=== PATIENT | male | born 1940 | race Caucasian/White ===

== ENCOUNTER 2020-04-03 01:43 | Outpatient (CLI) | payer MEDICARE, OTHER, SELFPAY ==
[2020-04-03 19:20] LABS: SARS-CoV-2 RNA PCR Negative
== END 2020-04-03 01:44 | disposition home or self-care (01) ==
LOC: ANHCOVIDDT 01:44
PROVIDERS: Visit Provider Internal Medicine Gastroenterology
DX: Z01.812 Encounter for preprocedural laboratory examination (principal); Z11.59 Encounter for screening for other viral diseases
CPT/HCPCS: 87635; C9803; U0003

== ENCOUNTER 2020-04-05 02:58 | Day surgery (SDC) | payer MEDICARE, OTHER, SELFPAY ==
[2020-03-31 11:06] VITALS: BMI 29.3
--- NOTE | 2020-04-05 09:03 | WPDANESEPPF ---
Anes - Initial Pre Proc Eval Procedure: Operation Date: 04/05/20 10:30 Proposed Procedures p Colonoscopy - Jameel Kwong MD Date/Time: 04/05/20 09:03 Surgeon: Jameel Kwong MD Pre Op Diagnosis: change in bowel habits Patient Data Age: 79 Gender: M Height: 1.65 m Weight: 80 kg Allergies Allergy/AdvReac Type Severity Reaction Status Date / Time No Known Allergies Allergy Unverified 04/05/20 10:26 Home Medications Medication Instructions Recorded Confirmed Type brimonidine-timolol [Combigan] 1 drp OPHTHALMIC (EYE) BID 03/31/20 03/31/20 History netarsudil-latanoprost [Rocklatan] 1 drp OPHTHALMIC (EYE) HS 03/31/20 03/31/20 History pravastatin 20 mg PO DAILY 03/31/20 03/31/20 History propranolol 20 mg PO DAILY 03/31/20 03/31/20 History quinapril 40 mg PO DAILY 03/31/20 03/31/20 History Patient hx anesthesia problems: none Family hx anesthesia problems: none PMFSH Past Medical History Medical History (Updated 04/05/20 @ 09:08 by Lawson Umanzor MD) HTN (hypertension) Hypercholesterolemia Overweight (BMI 25.0-29.9) Peripheral neuropathy 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, 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 Family History Family History (Updated 05/12/14 @ 07:13 by DOCTOR UNKNOWN) Mother Family history of malignant neoplasm Other Family history of gallbladder disease Anes - Eval Final PreProcedure Day of Procedure 04/05/20 09:03 Patient weight: overweight Heart: regular rate and rhythm Lungs: clear to auscultation and normal air movement Airway: Mallampati scale class II Neurological: alert and oriented Last oral intake: >/= 8 hours ASA classification: II Emergent: no Anesthetic plan: proceed Anesthesia type and monitoring: general GIVS Informed Consent: The patient's anesthetic plan and its attendant risks and benefits were discussed with the patient/family/POA. Questions were solicited and answers provided to the satisfaction of the patient/family/POA.
[2020-04-05 10:28] VITALS: BP 150/81; PULSE 61; RESP 20; TEMP 36.4; O2SAT 99; BMI 28.1
[2020-04-05] MEDS: LACTATED RINGERS 1,000 ML 150 ML IV CONT (10:41)
--- NOTE | 2020-04-05 11:54 | P.CONGI_ITS ---
Assessment and Plan Assessment and plan (1) Constipation: Code(s): K59.00 - Constipation, unspecified Status: Acute Assessment and Plan: Patient has chronic constipation appears to be worsening. Because of poor response to trials of medication and ongoing symptoms a colonoscopy will be performed plan is to continue MiraLax daily. Supplement this with Linzess daily, he may need milk a magnesia on occasion. Fleets enema has been suggested intermittently as well. Further recommendations may be given after endoscopy. (2) Encounter for diagnostic colonoscopy due to change in bowel habits: Code(s): R19.4 - Change in bowel habit Status: Acute (3) Epigastric abdominal pain: Code(s): R10.13 - Epigastric pain Status: Acute Assessment and Plan: Patient complains of epigastric pain and bloating. Because of these persistent symptoms an EGD will be performed is likely this is related to his chronic constipation. GI Consult Note Consult date/time: 04/05/20 11:54 HPI: Saeid Webb is a 79 year old male Seen in evaluation at the [facility] [place] est of Dr Samuel Salas. patient has a long history of constipation. Poorly responsive current medications patient has tried Linzess, magnesium citrate intermittently, fiber supplements and stool softeners. He has tried sorbitol on his own with minimal relief of symptoms. He presents today for colonoscopy. Additionally patient complains of epigastric pain bloating and and will be evaluated with endoscopy. Patient denies any weight loss or bleeding. Family history is noncontributory. 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 Family History Family History Mother Family history of malignant neoplasm Other Family history of gallbladder disease Meds Home Medications and Allergies Home Medications Medication Instructions Recorded Confirmed Type brimonidine-timolol [Combigan] 1 drp OPHTHALMIC (EYE) BID 03/31/20 04/05/20 History netarsudil-latanoprost [Rocklatan] 1 drp OPHTHALMIC (EYE) HS 03/31/20 04/05/20 History pravastatin 20 mg PO DAILY 03/31/20 04/05/20 History propranolol 20 mg PO DAILY 03/31/20 04/05/20 History quinapril 40 mg PO DAILY 03/31/20 04/05/20 History Allergies Allergy/AdvReac Type Severity Reaction Status Date / Time No Known Allergies Allergy Unverified 04/05/20 10:26 Vital Signs Vital Signs - 24 hr 04/05/20 10:28 Temperature 97.6 F Pulse Rate 61 Respiratory Rate 20 Blood Pressure 150/81 H Pulse Oximetry 99 Exam Narrative: Exam Narrative: Physical exam reveals patient to be alert. Vital signs stable. HEENT exam unremarkable. Lungs are clear to auscultation and percussion. Heart is without murmur or extra sounds. Abdominal exam bowel sounds are present soft nontender with no hepatosplenomegaly. Digital external rectal exam normal.
[2020-04-05] MEDS: BENZOCAINE (*SP) 60 ML SPRAY CAN (HURRICAINE) 1 SPRAY MUCOUS MEM (12:08)
[2020-04-05 12:35] VITALS: BP 75/52; PULSE 54; RESP 16; O2SAT 96
[2020-04-05 12:45] VITALS: BP 100/63; PULSE 51; RESP 16; O2SAT 98
[2020-04-05 12:55] VITALS: BP 114/67; PULSE 49; RESP 18; O2SAT 100
== END 2020-04-05 13:24 | disposition home or self-care (01) ==
PROVIDERS: PCP Internal Medicine; Visit Provider Internal Medicine Gastroenterology
PROC: 0DJD8ZZ Inspection of Lower Intestinal Tract, Via Natural or Artificial Opening Endoscopic (ICD-10-PCS; CPT 45378; principal; 2020-04-05 10:30)
DX: K59.00 Constipation, unspecified (principal); K64.8 Other hemorrhoids; K57.30 Diverticulosis of large intestine without perforation or abscess without bleeding; Q39.4 Esophageal web; R10.13 Epigastric pain; I10 Essential (primary) hypertension; E78.00 Pure hypercholesterolemia, unspecified; G62.9 Polyneuropathy, unspecified
CPT/HCPCS: 45385; 43235; 43450; 88305; J2704; J7120

== ENCOUNTER 2021-04-30 14:30 | Inpatient (IN) | payer MEDICARE, OTHER, SELFPAY ==
--- NOTE | ~2021-04-30 | XR_ITS ---
EXAMINATION: XR abdomen/kub 1V DATE: 05/03/2021 15:23 INDICATION: Constipation. TECHNIQUE: A supine view of the abdomen on 2 radiographs was obtained. COMPARISON: Abdomen radiographs 01/30/2012, CT abdomen and pelvis 04/30/2021 FINDINGS: There are no dilated loops of bowel. There is a paucity of stool in the colon. Surgical cli ps in the right upper quadrant are likely from cholecystectomy. IMPRESSION: 1. Nonobstructive bowel gas pattern. Reviewed, dictated and finalized at location B.
--- NOTE | ~2021-04-30 | CT_ITS ---
EXAMINATION: CT brain wo con DATE: 05/02/2021 10:26 INDICATION: Slurred speech. Abnormal gait. Generalized weakness. TECHNIQUE: Computed tomography (CT) of the head was performed without intravenous contrast. The mA wa s adjusted according to patient size. Iterative reconstruction technique was employed. The dose-lengt h product was 605.33 mGy-cm. COMPARISON: None FINDINGS: There is diffuse brain volume loss. There is no intracranial hemorrhage, acute infarction, or abnormal intracranial mass lesion. There are scattered areas of low attenuation in the cerebral wh ite matter, which is within normal limits for the patient's age. The ventricles are normal in size. T here are likely changes of left ocular lens replacement surgery. There is mucosal thickening in the p aranasal sinuses. The mastoid air cells are normal. IMPRESSION: 1. Normal aging brain. Reviewed, dictated and finalized at location B. IMPRESSION: 1. Normal aging brain.
--- NOTE | ~2021-04-30 | US_ITS ---
EXAMINATION:US venous doppler LE BI INDICATION:Lower extremity edema TECHNIQUE: Multiple grayscale, color flow and Doppler images of the right and left lower extremity de ep venous systems were obtained and reviewed. COMPARISON:No prior studies for comparison. FINDINGS: The common femoral, superficial femoral and popliteal veins demonstrate normal respiratory variation, augmentation and compressibility. Color flow is also seen within the posterior tibial, pe roneal, greater saphenous and profunda veins. IMPRESSION: 1: No lower extremity deep venous thrombosis. Reviewed, dictated and finalized at location A.
--- NOTE | ~2021-04-30 | XR_ITS ---
XR chest 2V DATE: 04/30/2021 15:44 INDICATION: Chronic cough for 2 years. Weakness. Hypertension. TECHNIQUE: AP and lateral views COMPARISON: None FINDINGS: Normal heart size. No hilar or mediastinal enlargement. No hilar or mediastinal enlargeme nt. There is a focal increased density overlying the right upper lung field, which may be due to bony den sity at the first costochondral junction; less likely would be pulmonary nodule. There is minimal at electasis at the lung bases. No pleural effusion or pneumothorax. There is scoliosis and degenerative change of the thoracic spine. Surgical clips, right upper quadrant, consistent with cholecystectomy. IMPRESSION: Focal density overlying right upper lung; bony density versus lung mass. Consider CT tho rax. Reviewed, dictated and finalized at location A. IMPRESSION: Focal density overlying right upper lung; bony density versus lung mass. Consider CT thorax.
--- NOTE | ~2021-04-30 | CT_ITS ---
EXAMINATION: CT chest abdomen pelvis w con DATE: 04/30/2021 18:20 INDICATION: Chronic cough for 2 years. Weakness. Hypertension. Constipation. Asymmetric opacity overlying right upper lung field TECHNIQUE: Computed tomography (CT) of the chest, abdomen, and pelvis was performed with 100 cc Omnip aque 350 intravenous contrast. Automated exposure control and iterative reconstruction technique were employed. Exam dose: 808.21 mGy-cm total exam DLP. COMPARISON: 04/30/2021 2 view chest 01/30/2012 CT abdomen pelvis FINDINGS: CHEST CT: There is patchy infiltrate in the posterior segment of the right upper lobe suggesting right upper lo be pneumonia. There is mild atelectasis at the lung bases, left greater than right. No thoracic aortic aneurysm or dissection. Heart size is within normal limits. Coronary artery calcifications. No pericardial or pleural effusion. There is mild right hilar and mediastinal lymph node prominence, likely reactive. Otherwise no hilar hilar or mediastinal mass lesion or lymphadenopathy. Small sliding hiatal hernia. ABDOMEN/PELVIS CT: Status post cholecystectomy. No bile duct dilatation. 2.6 cm right hepatic cyst. Normal splenic size. No pancreatic mass lesion, ductal dilatation or pancr eatic calcification. Multiple bilateral renal cysts including parapelvic cysts, especially on the left. Nonobstructive 5.8 mm lower pole right renal calculus. No ureteral calculus or hydroureteronephrosis is evident. There is prominent prostate enlargement and some prostate calcifications, the prostate impressing the base of the urinary bladder, asymmetrically more prominent on the left. Prostate cancer or urinary b ladder cancer is not excluded. Moderate sized fat-containing left inguinal hernia. Diffuse osteopenia. There are degenerative changes of the thoracic and lumbar spine no suspicious osteolytic or osteoblas tic lesions. IMPRESSION: Patchy right upper lobe infiltrates suggesting pneumonia Mild atelectasis at the left and to a lesser extent right lung base 2.6 cm right hepatic cyst Multiple bilateral renal cysts Nonobstructing 5.8 mm or pulmonary parenchyma calculus Prominent prostate enlargement, impressing the urinary bladder, especially on the left. Prostate canc er or urinary bladder cancer cannot be excluded. Moderate left inguinal fat-containing hernia Reviewed, dictated and finalized at Location A. Reviewed, dictated and finalized at location A. IMPRESSION: Patchy right upper lobe infiltrates suggesting pneumonia Mild atelectasis at the left and to a lesser extent right lung base 2.6 cm right hepatic cyst Multiple bilateral renal cysts Nonobstructing 5.8 mm or pulmonary parenchyma calculus Prominent prostate enlargement, impressing the urinary bladder, especially on t he left. Prostate cancer or urinary bladder cancer cannot be excluded. Moderate left inguinal fat-containing hernia
[2021-04-30 14:46] VITALS: BP 104/64; PULSE 70; RESP 20; TEMP 36.3; O2SAT 95
--- NOTE | 2021-04-30 14:52 | ECG_ITS ---
Measurements Intervals [place] Rate: 64 P: 5 [place]: 191 QRS: -23 QRSD: 98 T: 30 QT: 420 QTc: 436 Interpretive Statements SINUS RHYTHM BASELINE ARTIFACT- I, II, III, AVR, AVF, V2-V6 NORMAL ECG Electronically Signed On 04-30-2021 20:21:02 CDT by Raffaele Russo D.O.
[2021-04-30 15:52] LABS: Basophils Percent Auto 0.7 % (0.2-1.2); Eosinophils Percent Auto 0.7 % (0-4.4); Hematocrit 45.4 % (42.0-52.0); Hemoglobin 15.9 g/dL (14.0-18.0); Immature Granulocyte Absolute 0.03 K/mm3 (0.00-0.031); Lymphocytes Absolute Auto 1.15 K/mm3 (0.9-3.2); Lymphocytes Percent Auto 37.7 % (18.3-44.2); Mean Corpuscular Hemoglobin 29.8 pg (26-34); Mean Corpuscular Volume 85.2 fl (80-100); Mean Platelet Volume 9.4 fl (7.4-10.4); Monocytes Absolute Auto 0.5 K/mm3 (0.1-0.6); Monocytes Percent Auto 17.7 % (2.6-8.5); Neutrophils Absolute Auto 1.3 K/mm3 (1.3-6.7); Neutrophils Percent Auto 42.2 % (45.5-73.1); Platelet Count Result 153 k/mm3 (150-375); Red Blood Count 5.33 M/mm3 (4.6-6.20); Red Cell Distribution Width 13.5 % (11.5-14.5); White Blood Count 3.1 K/mm3 (4.5-10.0)
[2021-04-30 16:02] LABS: Alanine Aminotransferase 24 U/L (4-50); Albumin Level 4.1 g/dL (3.5-5.1); Alkaline Phosphatase 61 U/L (38-126); Anion Gap 9 mmol/L (8-16); Aspartate Amino Transferase 43 U/L (17-59); Bilirubin,Total 1.2 mg/dL (0.2-1.3); Blood Urea Nitrogen 20 mg/dL (9-20); Calcium 8.7 mg/dL (8.4-10.2); Carbon Dioxide 24 mmol/L (22-30); Chloride 98 mmol/L (98-107); Estimated CRCL calculation 50 ml/min; Estimated Glomerular Filt Rate > 60; Glucose 99 mg/dL (65-110); Potassium 3.9 mmol/L (3.4-5.0); Sodium 131 mmol/L (137-145)
--- NOTE | 2021-04-30 17:39 | PC.NURSE ---
Called - [phone] to inform her of pt in room #6
[2021-04-30] MEDS: SODIUM CHLORIDE 0.9% IV 1,000 ML 999 ML IV CONT (17:51)
[2021-04-30 17:52] VITALS: PULSE 65
[2021-04-30 17:54] VITALS: BP 115/69; PULSE 67; RESP 16
--- NOTE | 2021-04-30 17:57 | ED.GENADULT ---
HPI - General Adult General Chief complaint: Weakness Stated complaint: WEAKNESS X 1WK Time Seen by Provider: 04/30/21 17:34 Source: patient and RN notes reviewed History of Present Illness HPI narrative: Patient is a 80 y/o male complaining of moderate to severe generalized weakness for 1 month. There is no known alleviating or exacerbating factor. He has no been able to walk for several weeks. He states that he has been using a walker and crawling at times. He has no pain. He has a slight cough, but no fever. He also has chronic constipation and loose stool. He did not get and does not want to have COVID vaccine. Related Data Home Medications Medication Instructions Recorded Confirmed brimonidine-timolol [Combigan] 1 drp OPHTHALMIC (EYE) BID 03/31/20 04/05/20 netarsudil-latanoprost [Rocklatan] 1 drp OPHTHALMIC (EYE) HS 03/31/20 04/05/20 pravastatin 20 mg PO DAILY 03/31/20 04/05/20 propranolol 20 mg PO DAILY 03/31/20 04/05/20 quinapril 40 mg PO DAILY 03/31/20 04/05/20 Allergies Allergy/AdvReac Type Severity Reaction Status Date / Time No Known Allergies Allergy Verified 04/30/21 17:52 Review of Systems Constitutional: Constitutional: Denies chills, Denies fever(s), Denies headache(s) and Reports weakness Eyes: Eyes: Denies blurry vision ENT: Denies headache(s) and Denies neck pain Cardiovascular: Cardiovascular: Denies chest pain and Denies dyspnea Respiratory: Respiratory: Reports cough and Denies dyspnea Gastrointestinal: Gastrointestinal: Denies abdominal pain, Reports constipation, Reports diarrhea, Denies nausea and Denies vomiting Genitourinary: Genitourinary: Denies hematuria and Denies dysuria Musculoskeletal: Musculoskeletal: Denies back pain and Denies neck pain Neurologic: Denies headache(s) and Reports weakness PMFSH Past Medical History Medical History (Updated 04/30/21 @ 20:33 by Stacia Schneider MD) HTN (hypertension) Hypercholesterolemia Overweight (BMI 25.0-29.9) Peripheral neuropathy 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, 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 Family History Family History Mother Family history of malignant neoplasm Other Family history of gallbladder disease Exam Const: General: no acute distress and well developed Orientation/consciousness: oriented to person, oriented to place, oriented to time and patient oriented x3 HENMT: Head: normocephalic Ears: external ears normal General nose exam: Normal external nose present Eyes: General: appearance normal, both eyes and all related structures Conjunctivae: conjunctivae normal Neck: Neck: normal visual inspection and full ROM Chest: Chest palpation & inspection: normal inspection of the chest and no tenderness Resp: Effort & Inspection: normal respiratory effort Auscultation: clear to auscultation bilaterally Cardio: Rate: regular rate Rhythm: regular rhythm GI: GI Palp: No abdominal tenderness and Yes Soft to palpation Skin: General skin exam: normal color and turgor normal Neuro: General: oriented to person, oriented to place, oriented to time and patient oriented x3 Cognition (Neuro): normal cognition Extrem: General: normal to inspection, full ROM and no pedal edema Psych: Appearance: grossly normal Mental Status: mental status grossly normal Affect: normal affect Course Consultations Consultation #1: Discussed with Dr. Corey, who agrees to admit. Date: 04/30/21 Time: 19:50 Vital Signs Vital signs: Vital Signs Temperature 36.3 C L 04/30/21 14:46 Pulse Rate 70 04/30/21 14:46 Respiratory Rate 20 04/30/21 14:46 Blood Pressure 104/64 04/30/21 14:46 Pulse Oximetry 95 04/30/21 14:46 Temperature 36.3 C L 04/30/21 14:46 Pulse Rate 65 04/30/21 20:17 Respiratory Rate 29 H 04/30/21 20:17 Blood Pressure 126/79 04/30/21 20:17 Pulse Oximetry 97 04/30/21 20:17 Medical Decision Making Vital Signs Vital Signs: Vital Sig
--- NOTE | 2021-04-30 19:31 | PC.NURSE ---
pt stood at bedside to collect ua specimen. max assist by 2 rns.
[2021-04-30 19:38] VITALS: BP 107/73; PULSE 65; RESP 22; O2SAT 99
[2021-04-30 20:00] LABS: Add Urine Microscopic? YES; Appearance Urine Clear (Clear); Bilirubin Urine Negative (Negative); Blood Urine Negative (Negative); Color Urine Yellow (Yellow); Glucose Urine UA Negative (Negative); Ketones Urine Negative (Negative); Leukocyte Esterase Ur Negative LEU/UL (Negative); Mucus Urine Rare /lpf; Nitrate Urine Negative (Negative); Protein Urine Negative (Negative); RBC Urine 0-2 /hpf (0-2); Urobilinogen Urine Negative mg/dL (<2.0); WBC Urine 0-3 /hpf
[2021-04-30 20:06] LABS: Specific Grav Ur 1.051 (1.001-1.035)
[2021-04-30 20:17] VITALS: BP 126/79; PULSE 65; RESP 29; O2SAT 97
[2021-04-30 21:22] VITALS: BP 115/87; PULSE 69; RESP 22; O2SAT 99
--- NOTE | 2021-04-30 21:29 | PM.IMHP ---
H&P: HPI History of Present Illness Date/Time: 04/30/21 21:29 Chief Complaint: Generalized weakness Narrative: Patient is a 80 y/o male complaining of generalized weakness for the past few weeks he reports no fever chills but reports some cough. His weakness has been progressively getting worse to the point that he was unable to stand and walk. And hence came to the ER for evaluation. He reports ongoing issue with constipation has no diarrhea no abdominal pain nausea vomiting reported. No shortness of breath but does report dry cough. He has not been vaccinated with COVID. In the ED he was noted to have pneumonia of right upper lobe and hence getting admitted for further evaluation. Review of Systems Review of Systems: - CONSTITUTIONAL: Denies weight loss, fever and chills. - HEENT: Denies changes in vision and hearing - RESPIRATORY: Denies SOB and reports cough. - CV: Denies palpitations and CP. - GI: Denies abdominal pain, nausea, vomiting and diarrhea. Reports ongoing constipation - : Denies dysuria and urinary frequency. - MSK: Denies myalgia and joint pain. - SKIN: Denies rash and pruritus. - NEUROLOGICAL: Denies headache and syncope. Reports generalized weakness - PSYCHIATRIC: Denies recent changes in mood. Denies anxiety and depression. 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 Family History Family History Mother Family history of malignant neoplasm Other Family history of gallbladder disease Meds Home Medications and Allergies Home Medications Medication Instructions Recorded Confirmed Type brimonidine-timolol [Combigan] 1 drp OPHTHALMIC (EYE) BID 03/31/20 04/05/20 History netarsudil-latanoprost [Rocklatan] 1 drp OPHTHALMIC (EYE) HS 03/31/20 04/05/20 History pravastatin 20 mg PO DAILY 03/31/20 04/05/20 History propranolol 20 mg PO DAILY 03/31/20 04/05/20 History quinapril 40 mg PO DAILY 03/31/20 04/05/20 History linaclotide 290 mcg capsule 290 mcg PO DAILY #30 cap 03/09/21 Rx Allergies Allergy/AdvReac Type Severity Reaction Status Date / Time No Known Allergies Allergy Verified 04/30/21 17:52 Vital Signs Vital Signs - 24 hr 04/30/21 14:46 04/30/21 17:52 04/30/21 17:54 Temperature 97.4 F L Pulse Rate 70 65 67 Respiratory Rate 20 16 Blood Pressure 104/64 115/69 Pulse Oximetry 95 04/30/21 19:38 04/30/21 20:17 04/30/21 21:22 Temperature Pulse Rate 65 65 69 Respiratory Rate 22 H 29 H 22 H Blood Pressure 107/73 126/79 115/87 Pulse Oximetry 99 97 99 Exam Narrative: GENERAL: The patient is well developed, not in acute distress HEENT: Nonicteric sclerae, PERRLA, EOMI. Oropharynx clear. Moist mucous membranes. Conjunctivae appear well perfused. CHEST: Chest wall is nontender. HEART: Regular rate and rhythm without murmur, rubs, or gallops LUNGS: Crackles in right upper lobe area otherwise no other added sounds heard. no respiratory distress ABDOMEN: Soft, positive bowel sounds, non-tender, no organomegaly. SKIN: No rash, no excessive bruising, petechiae, or purpura. NEUROLOGIC: Cranial nerves II-XII intact, alert and oriented x 3, no gross motor deficits generalized weakness noted no focal deficits EXTREMITIES: Bilateral lower extremity edema which is chronic noted up to the level of knee, no cyanosis or clubbing Extrem: General: normal exam except as noted and no edema H&P: Results Labs Labs: Short CBC 04/30/21 Range/Units 15:17 WBC 3.1 L (4.5-10.0) K/mm3 Hgb 15.9 (14.0-18.0
[2021-05-01] VITALS (11 sets, daily range): BP systolic 100–153; BP diastolic 46–106; PULSE 58–88; RESP 16–24; TEMP 36.2–37.8; O2SAT 93–98; BMI 30.6
[2021-05-01 00:14] LABS: Procalcitonin 0.1 ng/mL
--- NOTE | 2021-05-01 00:43 | ADMGEN ---
This patient, Saeid Webb, was admitted to [facility] S[facility] Room 331-01. Patient/family oriented to hospital policies and general routines including ID bracelet, bed and alarms, visiting hours, pain management, procedures, bathroom and other care routines, personal items, smoking policy, room service/diet, and visiting hours. Information on how to activate the Rapid Response Team has been discussed. Patient/Family are encouraged to report perceived risks to care and to ask questions if they do not understand what they are told or what they should do.
[2021-05-01] MEDS: SODIUM CHLORIDE 0.9% IV 1,000 ML 100 ML IV CONT (06:05)
[2021-05-01 09:09] LABS: Eosinophils Percent Auto 1.3 % (0-4.4); Hematocrit 45.1 % (42.0-52.0); Immature Granulocyte Absolute 0.02 K/mm3 (0.00-0.031); Immature Granulocyte Percent A 0.6 % (0-0.5); Lymphocytes Absolute Auto 1.16 K/mm3 (0.9-3.2); Lymphocytes Percent Auto 36.9 % (18.3-44.2); Mean Corpuscular HGB Conc 33.3 g/dl (32-36); Mean Corpuscular Hemoglobin 29.8 pg (26-34); Mean Corpuscular Volume 89.7 fl (80-100); Mean Platelet Volume 9.4 fl (7.4-10.4); Monocytes Absolute Auto 0.5 K/mm3 (0.1-0.6); Monocytes Percent Auto 16.6 % (2.6-8.5); Neutrophils Absolute Auto 1.4 K/mm3 (1.3-6.7); Neutrophils Percent Auto 43.6 % (45.5-73.1); Platelet Count Result 138 k/mm3 (150-375); Red Blood Count 5.03 M/mm3 (4.6-6.20); Red Cell Distribution Width 13.7 % (11.5-14.5); White Blood Count 3.1 K/mm3 (4.5-10.0)
[2021-05-01] MEDS: PRAVASTATIN SODIUM 20 MG TABLET PO (09:23)
[2021-05-01] MEDS: GABAPENTIN 100 MG CAPSULE PO ×3 (09:23→18:07)
[2021-05-01] MEDS: lisinopriL 20 MG TABLET 40 MG PO (09:23)
[2021-05-01] MEDS: PROPRANOLOL HCL 20 MG TABLET 60 MG PO (09:23)
[2021-05-01 09:26] LABS: Lactate Dehydrogenase 495 U/L (313-618)
[2021-05-01 09:39] LABS: Anion Gap 6 mmol/L (8-16); Blood Urea Nitrogen 15 mg/dL (9-20); CRP 3.6 mg/dL (<1.0); Carbon Dioxide 26 mmol/L (22-30); Chloride 99 mmol/L (98-107); Estimated CRCL calculation 64 ml/min; Estimated Glomerular Filt Rate > 60; Glucose 97 mg/dL (65-110); Potassium 4.1 mmol/L (3.4-5.0); Sodium 131 mmol/L (137-145)
--- NOTE | 2021-05-01 17:35 | PM.IMPN ---
Progress Note: A&P Assessment and Plan (1) Pneumonia of right upper lobe due to infectious organism: Code(s): J18.9 - Pneumonia, unspecified organism Status: Acute Assessment and Plan: Patient presented with generalized weakness which is become worse over the last 2 weeks. He denies any urinary symptoms or change to his chronic cough. UA was not showing any UTI. CT Chest showed There is patchy infiltrate in the posterior segment of the right upper lobe suggesting right upper lobe pneumonia. The patient was not vaccinated for COVID. Initial labs show leukopenia, hyponatremia at 131. He was admitted into the hospital and started on IV antibiotics for community-acquired pneumonia, he was placed in isolation until COVID 19 can not be ruled out. Blood cultures and sputum were ordered and currently pending. At this time the patient is resting comfortably on room air. Continue IV antibiotics for pneumonia. Pending COVID-19 test, if positive will discontinue IV antibiotics and placed him on IV dexamethasone. The patient may be out of the window for IV Remdesivir if his symptoms have been going on longer than 10 days. Will order albuterol inhaler as needed for shortness of breath or wheezing. Continue monitoring respiratory status. Make adjustments if needed. (2) Weakness: Code(s): R53.1 - Weakness Status: Acute Assessment and Plan: Could be secondary to underlying infection verses COVID-19 verses underlying cancer with prostate enlargement and possible bladder involvement. Continue working with PT/OT Patient does report some feeling of off balance, vision changes, reports possible slurred speech so I will obtain an MRI of his brain to rule out any acute or recent infarction. The patient states all the symptoms have been going on for a few weeks at this point without any worsening changes here recently. Continue monitoring. (3) Person under investigation for COVID-19: Code(s): Z20.822 - Contact with and (suspected) exposure to COVID-19 Status: Acute Assessment and Plan: In isolation. Pending COVID 19 test. CRP is elevated at 3.6, LDH is normal. (4) HTN (hypertension): Code(s): I10 - Essential (primary) hypertension Status: Acute Assessment and Plan: Blood pressure slightly low this morning 100/46. He was on some IV fluids with improvement of his blood pressure to 120/65 this afternoon. Will DC IV fluids at this time. Continue monitoring. Make adjustments if needed. (5) Hypercholesterolemia: Code(s): E78.00 - Pure hypercholesterolemia, unspecified Status: Acute Assessment and Plan: Continue statin medication. 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 He uses braces when he walks. Will continue with gabapentin while he is here in the hospital. Continue working with PT/OT. Time Spent With Patient Time with patient: 25 - 35 minutes Subjective Date/time seen: 05/01/21 17:35 Interval history: Date of service 05/01/2021: Patient reports having generalized weakness which is become progressively worse over the last 2 weeks. Patient states prior to arrival he went to walk to the bathroom and needed a walker to get back into bed. The patient was not vaccinated for COVID-19. Patient does report a cough which has been chronic in nature over the last 2 years. He states his intermittent phlegm production is white/clear. Denies any issues with urination, urinary hesitancy, increased frequency, unable to empty
[2021-05-01] MEDS: polyethylene glycoL 3350 17 GM POWD.PACK PO (18:07)
[2021-05-01] MEDS: DOCUSATE SODIUM 100 MG CAPSULE PO (20:27)
[2021-05-01 21:10] LABS: SARS-CoV-2 RNA PCR Positive
[2021-05-02] VITALS (8 sets, daily range): BP systolic 111–143; BP diastolic 58–89; PULSE 66–76; RESP 17–20; TEMP 36.5–36.9; O2SAT 92–96
[2021-05-02 06:41] LABS: Hematocrit 43.5 % (42.0-52.0); Hemoglobin 14.7 g/dL (14.0-18.0); Mean Corpuscular HGB Conc 33.8 g/dl (32-36); Mean Corpuscular Hemoglobin 29.9 pg (26-34); Mean Corpuscular Volume 88.4 fl (80-100); Mean Platelet Volume 10.1 fl (7.4-10.4); Platelet Count Result 143 k/mm3 (150-375); Red Blood Count 4.92 M/mm3 (4.6-6.20); Red Cell Distribution Width 13.6 % (11.5-14.5); White Blood Count 2.7 K/mm3 (4.5-10.0)
[2021-05-02 06:58] LABS: Anion Gap 7 mmol/L (8-16); Blood Urea Nitrogen 11 mg/dL (9-20); CRP 3.8 mg/dL (<1.0); Calcium 8.1 mg/dL (8.4-10.2); Carbon Dioxide 24 mmol/L (22-30); Chloride 102 mmol/L (98-107); Estimated CRCL calculation 72 ml/min; Estimated Glomerular Filt Rate > 60; Glucose 92 mg/dL (65-110); Potassium 3.8 mmol/L (3.4-5.0); Sodium 133 mmol/L (137-145)
[2021-05-02] MEDS: PROPRANOLOL HCL 20 MG TABLET 60 MG PO (09:43)
[2021-05-02] MEDS: lisinopriL 20 MG TABLET 40 MG PO (09:44)
[2021-05-02] MEDS: PRAVASTATIN SODIUM 20 MG TABLET PO (09:44)
[2021-05-02] MEDS: GABAPENTIN 100 MG CAPSULE PO ×3 (09:44→16:20)
[2021-05-02] MEDS: polyethylene glycoL 3350 17 GM POWD.PACK PO ×2 (10:40→17:33)
[2021-05-02] MEDS: DOCUSATE SODIUM 100 MG CAPSULE PO ×2 (10:40→20:16)
[2021-05-02] MEDS: ENOXAPARIN 40 MG/0.4 ML SYRINGE SUB-Q (10:41)
--- NOTE | 2021-05-02 16:14 | PM.IMPN ---
Progress Note: A&P Assessment and Plan (1) COVID-19: Code(s): U07.1 - COVID-19 Status: Acute Assessment and Plan: Patient presented with generalized weakness which is become worse over the last 2 weeks. He denies any urinary symptoms or change to his chronic cough. UA was not showing any UTI. CT Chest showed There is patchy infiltrate in the posterior segment of the right upper lobe suggesting right upper lobe pneumonia. The patient was not vaccinated for COVID. Initial labs show leukopenia, hyponatremia at 131, elevated CRP. He was admitted into the hospital and started on IV antibiotics for community-acquired pneumonia, he was placed in isolation until COVID 19 can not be ruled out. Blood cultures and sputum were ordered and currently pending. POSITIVE COVID-19. IV abx were discontinued. He cannot tell me of when he was exposed and states symptoms have been for a few weeks. At this time he is resting comfortably on room air and will not start any IV Remdesivir or Decadron. Will order albuterol inhaler as needed for shortness of breath or wheezing. Conservative management at this time. Monitoring respiratory status. Continue monitoring respiratory status. Make adjustments if needed. (2) Weakness: Code(s): R53.1 - Weakness Status: Acute Assessment and Plan: Could be secondary to underlying infection verses COVID-19 verses underlying cancer with prostate enlargement and possible bladder involvement. Patient does report some feeling of off balance, vision changes, reports possible slurred speech. There have been no CT of his brain on arrival so I ordered this and it shows normal aging brain. At this time I am not going to order further imaging with an MRI. He does not have any focal weakness or symptoms. Everything has been going on for a few weeks or longer and any type of abnormality should have shown up on his CT of the brain. Continue working with PT and OT. Continue monitoring. (3) HTN (hypertension): Code(s): I10 - Essential (primary) hypertension Status: Acute Assessment and Plan: Blood pressure normal 111/58. Continue home medications. Continue monitoring. Make adjustments if needed. (4) Hypercholesterolemia: Code(s): E78.00 - Pure hypercholesterolemia, unspecified Status: Acute Assessment and Plan: Continue statin medication. 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 He uses braces when he walks. Will continue with gabapentin while he is here in the hospital. Continue working with PT/OT. (6) Prostate enlargement: Code(s): N40.0 - Benign prostatic hyperplasia without lower urinary tract symptoms Status: Acute Assessment and Plan: CT Abd/Pelvis showed abnormal findings- Prominent prostate enlargement, impressing the urinary bladder, especially on the left. Prostate cancer or urinary bladder cancer cannot be excluded. Patient denies any urinary issues at this time. Since he is currently infected with COVID-19 he will need to follow-up for further evaluation with his primary care provider or a urologist for further evaluation and possible biopsy. PSA test is pending (7) Constipation: Code(s): K59.00 - Constipation, unspecified Status: Acute Assessment and Plan: Patient's biggest complaint at this time is constipation. Will continue with Colace, MiraLax daily, given extra dose of MiraLax and a suppository. Continue monitoring his symptoms.
[2021-05-02] MEDS: BISACODYL 10 MG SUPPOSITORY RECTAL (17:32)
[2021-05-03] VITALS (7 sets, daily range): BP systolic 111–152; BP diastolic 58–87; PULSE 64–89; RESP 18–22; TEMP 36.5–37.5; O2SAT 92–98
[2021-05-03] MEDS: PROPRANOLOL HCL 20 MG TABLET 60 MG PO (09:37)
[2021-05-03] MEDS: GABAPENTIN 100 MG CAPSULE PO ×3 (09:38→17:30)
[2021-05-03] MEDS: PRAVASTATIN SODIUM 20 MG TABLET PO (09:38)
[2021-05-03] MEDS: polyethylene glycoL 3350 17 GM POWD.PACK PO (09:38)
[2021-05-03] MEDS: ENOXAPARIN 40 MG/0.4 ML SYRINGE SUB-Q (09:38)
[2021-05-03] MEDS: DOCUSATE SODIUM 100 MG CAPSULE PO ×2 (09:38→20:49)
[2021-05-03] MEDS: lisinopriL 20 MG TABLET 40 MG PO (09:38)
[2021-05-03 14:54] LABS: Basophils Percent Auto 0.3 % (0.2-1.2); Eosinophils Percent Auto 0.6 % (0-4.4); Hemoglobin 14.9 g/dL (14.0-18.0); Immature Granulocyte Absolute 0.02 K/mm3 (0.00-0.031); Immature Granulocyte Percent A 0.6 % (0-0.5); Lymphocytes Absolute Auto 0.85 K/mm3 (0.9-3.2); Lymphocytes Percent Auto 24.1 % (18.3-44.2); Mean Corpuscular HGB Conc 33.9 g/dl (32-36); Mean Corpuscular Hemoglobin 30.2 pg (26-34); Mean Corpuscular Volume 89.1 fl (80-100); Mean Platelet Volume 9.2 fl (7.4-10.4); Monocytes Absolute Auto 0.5 K/mm3 (0.1-0.6); Neutrophils Absolute Auto 2.1 K/mm3 (1.3-6.7); Neutrophils Percent Auto 59.4 % (45.5-73.1); Platelet Count Result 148 k/mm3 (150-375); Red Blood Count 4.94 M/mm3 (4.6-6.20); Red Cell Distribution Width 13.8 % (11.5-14.5); White Blood Count 3.5 K/mm3 (4.5-10.0)
--- NOTE | 2021-05-03 15:02 | PM.IMPN ---
Progress Note: A&P Assessment and Plan (1) Weakness: Code(s): R53.1 - Weakness Status: Acute Assessment and Plan: Could be secondary to underlying infection verses COVID-19 verses underlying cancer with prostate enlargement and possible bladder involvement. Patient does report some feeling of off balance, vision changes, reports possible slurred speech. CT of his brain showed normal aging brain. At this time, I am not going to order further imaging with an MRI. He is not having any new or worsening symptoms since arrival. He does not have any focal weakness. Everything has been going on for a few weeks or longer and any type of abnormality should have shown up on his CT of the brain. Continue working with PT and OT. Continue monitoring. Spoke to the patients daughter for 40 minutes about her concerns and the patients concerns. All questions have been answers. Concerns have been discussed. (2) COVID-19: Code(s): U07.1 - COVID-19 Status: Acute Assessment and Plan: Patient presented with generalized weakness which is become worse over the last 2 weeks. He denies any urinary symptoms or change to his chronic cough. UA was not showing any UTI. CT Chest showed There is patchy infiltrate in the posterior segment of the right upper lobe suggesting right upper lobe pneumonia. The patient was not vaccinated for COVID. Initial labs show leukopenia, hyponatremia at 131, elevated CRP. He was admitted into the hospital and started on IV antibiotics for community-acquired pneumonia, he was placed in isolation until COVID 19 can not be ruled out. Blood cultures ordered and currently negative to date. Sputum culture not collected yet. POSITIVE COVID-19 04/30/21 and IV abx were discontinued. He cannot tell me of when he was exposed and states symptoms have been for a few weeks. At this time he is resting comfortably on room air and will not start any IV Remdesivir or Decadron. Continue albuterol inhaler as needed for shortness of breath or wheezing. Conservative management at this time. Monitoring respiratory status. Continue monitoring respiratory status. Make adjustments if needed. (3) HTN (hypertension): Code(s): I10 - Essential (primary) hypertension Status: Acute Assessment and Plan: Blood pressure normal 150/87. Continue home medications. Continue monitoring. Make adjustments if needed. (4) Hypercholesterolemia: Code(s): E78.00 - Pure hypercholesterolemia, unspecified Status: Acute Assessment and Plan: Continue statin medication. 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 He uses braces when he walks. Will continue with gabapentin while he is here in the hospital. Continue working with PT/OT. (6) Prostate enlargement: Code(s): N40.0 - Benign prostatic hyperplasia without lower urinary tract symptoms Status: Acute Assessment and Plan: CT Abd/Pelvis showed abnormal findings- Prominent prostate enlargement, impressing the urinary bladder, especially on the left. Prostate cancer or urinary bladder cancer cannot be excluded. Patient denies any urinary issues at this time. Since he is currently infected with COVID-19 he will need to follow-up for further evaluation with his primary care provider or a urologist for further evaluation and possible biopsy. PSA test is pending Told the daughter who states this will be followed up after he is discharged. (7) Constipation: Code(s): K59.00 - Const
--- NOTE | 2021-05-03 15:03 | PCPTNOTE ---
Attempted PT eval twice. Pt refused both time. Will attempt again tomorrow.
[2021-05-03 15:10] LABS: Alanine Aminotransferase 22 U/L (4-50); Albumin Level 3.3 g/dL (3.5-5.1); Alkaline Phosphatase 51 U/L (38-126); Anion Gap 5 mmol/L (8-16); Aspartate Amino Transferase 43 U/L (17-59); Bilirubin,Total 1.3 mg/dL (0.2-1.3); Blood Urea Nitrogen 16 mg/dL (9-20); Calcium 8.3 mg/dL (8.4-10.2); Carbon Dioxide 28 mmol/L (22-30); Chloride 96 mmol/L (98-107); Estimated CRCL calculation 64 ml/min; Estimated Glomerular Filt Rate > 60; Glucose 96 mg/dL (65-110); Potassium 3.7 mmol/L (3.4-5.0); Sodium 129 mmol/L (137-145)
[2021-05-03 15:16] LABS: CRP 4.5 mg/dL (<1.0)
[2021-05-04 06:00] VITALS: BP 149/77; PULSE 69; RESP 18; TEMP 37.4; O2SAT 94
[2021-05-04 09:31] VITALS: PULSE 69
[2021-05-04] MEDS: DOCUSATE SODIUM 100 MG CAPSULE PO (09:31)
[2021-05-04] MEDS: PROPRANOLOL HCL 20 MG TABLET 60 MG PO (09:31)
[2021-05-04] MEDS: GABAPENTIN 100 MG CAPSULE PO ×2 (09:31→12:50)
[2021-05-04] MEDS: ENOXAPARIN 40 MG/0.4 ML SYRINGE SUB-Q (09:32)
[2021-05-04] MEDS: lisinopriL 20 MG TABLET 40 MG PO (09:32)
[2021-05-04] MEDS: polyethylene glycoL 3350 17 GM POWD.PACK PO (09:32)
[2021-05-04] MEDS: PRAVASTATIN SODIUM 20 MG TABLET PO (09:32)
--- NOTE | 2021-05-04 11:09 | PCOTNOTE ---
Attempted to see patient this am, however patient was eating at this time.
[2021-05-04 12:39] LABS: PSA, Free 8.43 ng/mL; PSA, Total 19.9 ng/mL (<=4.0)
--- NOTE | 2021-05-04 13:18 | P.PNIM_ITS ---
Progress Note: A&P Assessment and Plan (1) Weakness: Code(s): R53.1 - Weakness Status: Acute Assessment and Plan: Could be secondary to underlying infection verses COVID-19 verses underlying cancer with prostate enlargement and possible bladder involvement. * Patient does report some feeling of off balance, vision changes, reports possible slurred speech. CT of his brain showed normal aging brain. At this time, I am not going to order further imaging with an MRI. He is not having any new or worsening symptoms since arrival. He does not have any focal weakness. Everything has been going on for a few weeks or longer and any type of abnormality should have shown up on his CT of the brain. * Continue working with PT and OT. Continue monitoring. Spoke to the patients daughter for 40 minutes about her concerns and the patients concerns. All questions have been answers. Concerns have been discussed. (2) COVID-19: Code(s): U07.1 - COVID-19 Status: Acute Assessment and Plan: Patient presented with generalized weakness which is become worse over the last 2 weeks. He denies any urinary symptoms or change to his chronic cough. UA was not showing any UTI. CT Chest showed There is patchy infiltrate in the posterior segment of the right upper lobe suggesting right upper lobe pneumonia. The patient was not vaccinated for COVID. Initial labs show leukopenia, hyponatremia at 131, elevated CRP. He was admitted into the hospital and started on IV antibiotics for community-acquired pneumonia, he was placed in isolation until COVID 19 can not be ruled out. * Blood cultures ordered and currently negative to date. * Sputum culture not collected yet. * POSITIVE COVID-19 04/30/21 and IV abx were discontinued. He cannot tell me of when he was exposed and states symptoms have been for a few weeks. At this time he is resting comfortably on room air and will not start any IV Remdesivir or Decadron. * Continue albuterol inhaler as needed for shortness of breath or wheezing. * Conservative management at this time. * Monitoring respiratory status. Continue monitoring respiratory status. Make adjustments if needed. (3) HTN (hypertension): Code(s): I10 - Essential (primary) hypertension Status: Acute Assessment and Plan: Blood pressure normal 150/87. Continue home medications. Continue monitoring. Make adjustments if needed. (4) Hypercholesterolemia: Code(s): E78.00 - Pure hypercholesterolemia, unspecified Status: Acute Assessment and Plan: Continue statin medication. 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 He uses braces when he walks. Will continue with gabapentin while he is here in the hospital. * Continue working with PT/OT. (6) Prostate enlargement: Code(s): N40.0 - Benign prostatic hyperplasia without lower urinary tract symptoms Status: Acute Assessment and Plan: CT Abd/Pelvis showed abnormal findings- Prominent prostate enlargement, impressing the urinary bladder, especially on the left. Prostate cancer or urinary bladder cancer cannot be excluded. Patient denies any urinary issues at this time. Since he is currently infected
--- NOTE | 2021-05-04 13:19 | PM.DS ---
DS: Admitting Diagnosis Admitting Diagnosis Weakness DS: Discharge Diagnosis Discharge Diagnosis (1) COVID-19: Code(s): U07.1 - COVID-19 Status: Acute Assessment and Plan: Patient chirag patient is an 80-year-old man with a history of hypertension, dyslipidemia, peripheral neuropathy to his bilateral legs and hands, who presented to the ER with generalized weakness which has become progressively worse over the last 2 weeks. He denies any urinary symptoms or change to his chronic cough. UA was not showing any UTI. CT Chest showed patchy infiltrate in the posterior segment of the right upper lobe suggesting right upper lobe pneumonia. The patient was not vaccinated for COVID. Initial labs show leukopenia, hyponatremia at 131, elevated CRP. He was admitted into the hospital and started on IV antibiotics for community-acquired pneumonia, he was placed in isolation until COVID 19 can not be ruled out. The patients test became POSITIVE COVID-19 on 04/30/21 and IV abx were discontinued. He cannot tell me of when he was exposed and states symptoms have been for a few weeks. At this time, he is resting comfortably on room air and will not start any IV Remdesivir or Decadron. I got a CT of the patient's brain which had not been completed in the emergency room because of his symptoms of continued weakness, off balance to rule out stroke or other abnormality. CT Brain showed Normal aging brain. During the patient's hospitalization he remained comfortable on room air, physical and occupational therapy continue to work with him on his generalized weakness. He did not develop any changes to his cough, it remained clear in color and feeling like more of a postnasal drip instead of any type of chest congestion. He remained leukopenic, elevated CRP suggesting viral etiology. No antibiotics were restarted. Patient did not have any recorded fevers, remain non tachycardic, stable blood pressure, normal respiratory rate and oxygenation on room air. Blood cultures currently negative to date. We were providing conservative management for the patient during his hospitalization. After much discussion with the patient, his and his daughter Renetta about the patient's overall clinical status and weakness, it was decided that he was going to return home with the help of his family on his recovery. We did offer the patient to go to a [facility] re[facility] facility due to his weakness, which the patient declined and family states they are able to help him at home and feel comfortable with bringing him home. He was set up for home health which will have to wait to come see him until his quarantine is up. I discussed with Renetta and his that he is a mod to max assistance which means 50% to 100% with going from a sitting to standing position. He is a high risk for fall. I recommend getting a wheelchair to help him get into the house as well as to use whenever needed around the house. I offered the patient staying another day if the family needed to get anything ready, but they felt comfortable with him coming home tonight. They reassured me of the multiple family members in healthcare who understand what is going on and are available to help. I told them that the patient should never be left alone with just him and his and another family member should be there 07/04 to prevent any type of fall from the patient or fall from his which could cause further injury or harm to both of them. Told he needs to continue monitoring his pulse oximeter. Return to ER warnings given. Follow-up with his primary care provider given as well as a list of [facility] primary care provider should have been given to him by the [facility] managed care. Told them if they feel he is not safe at home with the family that we can work on getting him placed in an SNF facility, to talk to his primary care provider Friday, they can call our facility to try and help arrange it were to come back
[2021-05-05 19:51] LABS: Pneumococcal Antigen Urine Not Detected (Not Detected)
[2021-05-06 03:37] LABS: Legionella pneumophila Ag Ur Not Detected (Not Detected)
--- NOTE | 2021-05-08 08:12 | PC.NURSE ---
PSA and CTA results faxed to Dr. Gresham per request of NIKKY Cole.
== END 2021-05-04 16:25 | disposition home or self-care (01) | DRG 177 ==
LOC: ANHED 20:33 → ANH3MEDSUR 23:29
PROVIDERS: Emergency Medicine; Physician Assistant; Admitting Provider Internal Medicine; Emergency Provider Emergency Medicine; PCP Family Medicine; Visit Provider Internal Medicine Critical Care Medicine
DX: U07.1 COVID-19 (principal); J12.82 Pneumonia due to coronavirus disease 2019; E87.1 Hypo-osmolality and hyponatremia; I10 Essential (primary) hypertension; E78.00 Pure hypercholesterolemia, unspecified; G62.9 Polyneuropathy, unspecified; K59.00 Constipation, unspecified; N40.0 Benign prostatic hyperplasia without lower urinary tract symptoms
CPT/HCPCS: 36415; 70450; 71046; 71260; 74018; 74177; 80048; 80053; 81001; 83615; 84145; 84153; 84154; 85025; 85027; 86140; 86738; 87040; 87449; 87899; 93005; 93970; 96361; 96365; 96367; 97110; 97161; 97166; 97535; 99285; A9270; C9803; G0378; J0456; J0696; J1650; J7030; Q9967; U0003; U0005

== ENCOUNTER 2022-07-29 10:33 | Outpatient (RCR) | payer MEDICARE, OTHER, SELFPAY ==
--- NOTE | 2022-07-29 11:57 | PTOPEVDC ---
Assessment and note entered by Alfredo Hilton, PT Thank you for referring Saeid Webb to [facility].? An evaluation has been completed. No further treatment is needed. Evaluation Information Assessment Status Evaluation Diagnosis gait imbalance, peripheral neuropathy Onset gradual Subjective Information Patient reports that he has been feeling that his balance is not well and he would like to be able to no longer use the rollator that he has. He states that his balance has gotten significantly worse after a failed cataract surgery on the L eye about a year ago. The patient has SENA numbness in his legs up to his knees. He reports no falls recently, but states he has which he replies is more tripping than falling. The patient wants a guarantee that if he does 24 visits of physical therapy that he will no longer need to use the rollator. Physical therapist cannot make that promise. Reported Pain Level Pain Score 0: Self Report Assessment PT Clinical Summary Kishore is an 82 year old male coming into the clinic because he would like to be able to walk without his rollator. Patient demonstrates normal strength in his knees, good strength in his hips, but no strength in his ankles. 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 Patient has no feeling in the bottom of his feet according to the [facility] [employer] test and very faint with light touch testing up to his knees. Patient main issues is that he has functional strength in the knee and hip to help complensate for the ankles, but his sensation issues from his neuropathy and the visual issues on the L eye make it hard to see the physical therapist to be able to progressed off of the rollator. Physical therapist told patient and that and patient reports he he cannot for sure get off the walker than it is just a waste of his time. Patient did see the value in trying to progress his strengthening exercises he was doing in home health from sitting to standing to work on balance along with potentially getting new AFO's with dorsiflexion assist to help with his gait pattern. At this time patient is not picked up for more physical therapy, but hopeful if he gets new AFO's that he might try physical therapy to potentially progress to a cane, but that is still a long shot .
--- NOTE | 2022-12-04 14:56 | PCPTNOTE ---
Had message to call patient about clarification of his evaluation which was performed over 4 months ago. Patient reports he is unsure about the AFO's that the physical therapist recommended back then and he has a fitting with Stefan at [facility] on Friday and wanted to run by a few questions. By the time the therapist called back the patient reports he looked up the AFO's on the internet and they do look like the ones that the therapist recommended. Patient concerned about weight of the new AFO's and was wondering how to limit weight and improve the strapping system of the AFO's. Physical therapist reports that the patient will have to talk to Stefan about those situations as I am sure he made it as light weight and safe as he could, but the sales and service advisor would be the proper resource for those questions not me.
== END 2022-07-29 14:41 | disposition home or self-care (01) ==
LOC: ANHPT 10:33
DX: R26.9 Unspecified abnormalities of gait and mobility (principal)
CPT/HCPCS: 97161